=== PATIENT | female | born 1970 | race Two or more races ===

== ENCOUNTER 2024-12-10 17:28 | Emergency (ER) | payer OTHER ==
[~2024-12-10] VITALS: Ht 165.1 cm; Wt 83.5 kg
[~2024-12-10 17:28] MED LIST: AMOX1TAB5 PO; OXYC1TAB9 PO
[2024-12-10] MEDS ORDERED: ANASTROZOLE1 MG PO (18:01)
[2024-12-10] MEDS ORDERED: TRIAMTERENE-HC1 EAC3 PO (18:01)
[2024-12-10] MEDS ORDERED: AMLODIPINE-OLM1 EACH PO (18:02)
[2024-12-10] MEDS ORDERED: 0.9 % SODIUM CHLORIDE 1,000 ML IV STA ×2 (19:38→19:46)
[2024-12-10] MEDS ORDERED: FAMOTIDINE/PF 20 MG in 0.9 % SODIUM CHLORIDE 8 ML IV PUSH STA (19:46)
[2024-12-10] MEDS ORDERED: ONDANSETRON HCL 2 MG/ML VIAL IV STA (19:46)
[2024-12-10 20:11] LABS: HEMATOCRIT 45.3 % (36.0-45.00); HEMOGLOBIN 15.6 g/dL (12.0-15.00); MEAN CELL VOLUME 90.3 fL (80.00-100.00); MEAN CORPUSCULAR HEMOGLOBIN 31.1 pg (27.00-32.0); MEAN CORPUSCULAR HGB CONC 34.4 g/dl (32.0-36.0); PLATELET COUNT 260 K/uL (150-450); RED BLOOD COUNT 5.01 M/uL (4.00-6.00); RED CELL DISTRIBUTION WIDTH 13.3 % (11.5-14.5)
[2024-12-10] MEDS ORDERED: ONDANSETRON HCL 2 MG/ML VIAL ONE (20:13)
[2024-12-10] MEDS ORDERED: FAMOTIDINE/PF 20 MG/2 ML VIAL ONE (20:14)
[2024-12-10 20:42] LABS: CALCIUM 8.8 mg/dL (8.5-10.1); CREATININE SERUM 0.76 mg/dL (0.55-1.02); GFR 79.31; POTASSIUM 3.29 mEq/L (3.5-5.1)
[2024-12-10 20:57] LABS: PH,URINE 5.5 (5.0-8.0); URINE APPEARANCE Clear; URINE BILIRRUBIN Small (NEGATIVE); URINE BLOOD Negative; URINE COLOR Dark Yellow; URINE GLUCOSE Negative (NEGATIVE); URINE KETONE Trace (NEGATIVE); URINE LEUKOCYTE Negative; URINE NITRATE Negative; URINE PROTEIN 30 (NEGATIVE); URINE UROBILINOGEN 0.2 E.U./dl
[2024-12-10 21:01] LABS: URINE BACTERIA 168.9 uL (0.0-1933); URINE EPITHELIAL CELLS 22.6 uL (0.0-38.8)
[2024-12-10 21:13] LABS: URINE CAST 0.73 uL (0.0-1.40)
== END 2024-12-10 23:55 | disposition home or self-care (01) ==
LOC: ER 17:31
PROVIDERS: Emergency Medicine
DX: K52.89 Other specified noninfective gastroenteritis and colitis (principal); Z88.8 Allergy status to other drugs, medicaments and biological substances; Z85.038 Personal history of other malignant neoplasm of large intestine